=== PATIENT | female | born 1970 | race Caucasian/White ===

== ENCOUNTER → 2017-01-20 | Outpatient (CLI) | payer OTHER ==
[2015-05-30 21:30] VITALS: BP 122/59
[~2017-01-20] MED LIST: ASEN10TA9 SL; CHRO1TAB3 PO; DICL25CA PO; ESTR0.5T PO; FENT1PAT15 TD; GABA-587 PO; LEVO25TA2 PO; LEVO75TA PO; MELO7.5T5 PO; MONT10TA9 PO; OXYC-250 PO; PROG100C7 PO; TOPI25TA32 PO; VENL75CA PO; ZIPR40CA2 PO
--- NOTE | 2017-01-24 12:17 | RESP ---
DATE OF SERVICE: 01/20/2017 ATTENDING PHYSICIAN: Dr. Percy Soto. The patient underwent full pulmonary function testing dated 01/20/2017. FEV1 to FVC ratio was 81%. FEV1 was 75% of predicted at 2.20 liters. FVC was 74% of predicted at 2.71 liters. Total lung capacity was not performed. Vital capacity was decreased at 74% of predicted. Diffusion capacity was preserved. IMPRESSION: Spirometry indicative of restrictive lung disease. Vital capacity was 74% of predicted at 2.70 liters. Total lung capacity was not obtained. HARRIS HAMILTON MD DR: RYAN/anna JOB#: [id number] / [id number] LEYDI Marie MD
== END | disposition home or self-care (01) ==
LOC: PF 11:02
PROVIDERS: ATTEND Internal Medicine Pulmonary Disease
DX: R06.02 Shortness of breath (principal)
CPT/HCPCS: 94060; 94729

== ENCOUNTER 2019-04-18 21:38 | Emergency (ER) | payer MEDICARE, OTHER ==
[~2019-04-18] VITALS: Ht 165.1 cm; Wt 136.1 kg
[~2019-04-18 21:38] MED LIST changes: -GABA-587 PO; +GABA-689 PO; -LEVO25TA2 PO; +LEVO25TA55 PO; +MONT10TA49 PO; -MONT10TA9 PO; -OXYC-250 PO; +OXYC1TAB22 PO; +PROG100C15 PO; -PROG100C7 PO; -TOPI25TA32 PO; +TOPI25TA52 PO
[2019-04-18 21:50] VITALS: BP 151/73
[2019-04-18] MEDS ORDERED: ORPH100T PO (22:03)
[2019-04-18] MEDS ORDERED: GABA-585 PO (22:03)
--- NOTE | 2019-04-18 22:03 | PHYS DOC ---
Past Medical History Past Medical History: Anxiety, Depression Additional Past Medical Histor: CHRONIC LOWER BACK PAIN (BIBI WEEMS APRN) Past Surgical History: Cholecystectomy, Oophorectomy, Tonsillectomy Additional Past Surgical Histo: UTERINE ABLASTION, RIGHT CARPAL TUNNEL (BIBI WEEMS APRN) Alcohol Use: None Drug Use: None (BIBI WEEMS APRN) Adult General Chief Complaint Chief Complaint: LOWER BACK PAIN OR INJURY HPI HPI Patient is a 48 year old female who presents with mom history of bulging disc, sciatica, nerve pain states today the pain is worse and she is having a 10 out of 10 pain in the back of the left leg from the lower back that shoots down to the back of the left leg. Patient rates pain a 10 out of 10 and states is sharp and shooting. Patient states that she is currently being seen by pain clinic for multiple doctors and they have talked about steroid injections to her back. Patient states she doubled up on her oxycodone stay at 1999. Patient states she wants to be admitted and wants IV Dilaudid is only thing that can help her pain. Patient is unable to take any NSAIDs or steroid due to gastric bypass. Patient is tearful. (BIBI WEEMS PE MANAGER) Review of Systems Review of Systems Constitutional: Denies fever or chills [] Eyes: Denies change in visual acuity, redness, or eye pain [] HENT: Denies nasal congestion or sore throat [] Respiratory: Denies cough or shortness of breath [] Cardiovascular: No additional information not addressed in HPI [] GI: Denies abdominal pain, nausea, vomiting, bloody stools or diarrhea [] : Denies dysuria or hematuria [] Musculoskeletal: back pain that radiates down back of left leg. Denies joint pain [] Integument: Denies rash or skin lesions [] Neurologic: Denies headache, focal weakness or sensory changes [] Endocrine: Denies polyuria or polydipsia [] All other systems were reviewed and found to be within normal limits, except as documented in this note. (BIBI WEEMS APRN) Current Medications Current Medications Current Medications Medications (Trade) Dose Ordered Sig/Grace Start Time Stop Time Status Last Admin Dose Admin Morphine Sulfate (Morphine Sulfate) 2 mg 1X ONCE 7/4/19 22:30 04/18/19 22:31 DC 04/18/19 22:13 2 MG Orphenadrine Citrate (Norflex) 60 mg 1X ONCE 04/18/19 22:30 04/18/19 22:31 DC 04/18/19 22:13 60 MG (VIKTORIA RASMUSSEN MD) Allergies Allergies Allergies Coded Allergies Type Severity Reaction Last Updated Verified Sulfa (Sulfonamide Antibiotics) Allergy Intermediate rash 03/12/15 Yes (VIKTORIA RASMUSSEN MD) Physical Exam Physical Exam Constitutional: Well developed, well nourished, no acute distress, non-toxic appearance. [] HENT: Normocephalic, atraumatic, bilateral external ears normal, oropharynx moist, no oral exudates, nose normal. [] Eyes: PERRLA, EOMI, conjunctiva normal, no discharge. [] Neck: Normal range of motion, no tenderness, supple, no stridor. [] Cardiovascular:Heart rate regular rhythm, no murmur [] Lungs & Thorax: Bilateral breath sounds clear to auscultation [] Abdomen: Bowel sounds normal, soft, no tenderness, no masses, no pulsatile masses. [] Skin: Warm, dry, no erythema, no rash. [] Back: Lumbar spine tenderness, no CVA tenderness. [] Extremities: No tenderness, no cyanosis, no clubbing, ROM intact, no edema. [] Neurologic: Alert and oriented X 3, normal motor function, normal sensory function, no focal deficits noted. [] Psychologic: Affect normal, judgement normal, mood normal. [] (BIBI WEEMS APRN) Current Patient Data Vital Signs Vital Signs Date Time Temp Pulse Resp B/P (MAP) Pulse Ox O2 Delivery O2 Flow Rate FiO2 04/18/19 22:13 24 97 Room Air 04/18/19 21:50 98.5 65 151/73 (99) 98.5 (VIKTORIA RASMUSSEN MD) EKG EKG [] (BIBI WEEMS APRN) Radiology/Procedures Radiology/Procedures [] (BIBI WEEMS APRN) Course & Med Decision Making Course & Med Decision Making Patient is a 48 year old female who presents with mom history of bulging disc, sciatica, nerve pain states today the pain is worse and she is having a 10 out of 10 pain in the back of the left leg from the lower back that shoots down to the back of the left leg. Patient rates pain a 10 out of 10 and states is sharp and shooting. Patient states that she is currently being seen by pain clinic for multiple doctors and they have talked about steroid injections to her back. Patient states she doubled up on her oxycodone stay at 2000. Patient states she wants to be admitted and wants IV Dilaudid is only thing that can help her pain. Patient is unable to take any NSAIDs or steroid due to gastric bypass. Patient is tearful. Patient unable to ambulate due to pain and is wheeled into the ED. There is no swelling or deformity or redness seen to the affected leg. There is tenderness when palpated to the lower back. Pedal pulses present. Patient is told that she is not going to receive IV Dilaudid is not meet admission status. Patient is also told that we do not do steroid injection procedures in the ED. I have offered the patient IM pain medication and muscle relaxer. Patient states morphine does not do anything needed is gabapentin. Patient is extremely upset and yelling at staff due to not getting IV pain medication and not being admitted to the hospital. I have consulted with Dr Rasmussen on this patient. Patient is given a IM shot of morphine and orphenadrine. I have sent her home with a prescription for gabapentin and orphenadrine. Patient to continue taking her oxycodone and other pain medications that her pain clinic currently has her on as prescribed. Patient needs to call them as soon as possible to for follow-up. Patient's states they've been to multiple clinics and hospitals. Patient states she is going back to [facility] after leaving this hospital. (IBBI WEEMS APRN) Course & Med Decision Making Staff Physician Addendum: I was working in the ER during the course of this patient's visit. I was available for consultation as needed, but I was not directly involved in the care of this patient. (VIKTORIA RASMUSSEN MD) Dragon Disclaimer Dragon Disclaimer This electronic medical record was generated, in whole or in part, using a voice recognition dictation system. (BIBI WEEMS APRN) Departure Departure Impression: Primary Impression: Nerve pain Disposition: 01 HOME, SELF-CARE Condition: STABLE Referrals: NICKI GONZALEZ (PCP) Patient Instructions: Back Pain, Adult, Sciatica Additional Instructions: Follow up with doctor as soon as possible. Take medication as prescribed. Scripts Orphenadrine Citrate (ORPHENADRINE CITRATE) 100 Mg Tablet.er 1 TAB PO BID, #20 TAB 1 Refill Prov: BIBI WEEMS APRN 04/18/19 Gabapentin (GABAPENTIN ) 100 Mg Capsule 100 MG PO TID for NEUROGENIC PAIN, #20 CAP Prov: BIBI WEEMS APRN 04/18/19 BIBI WEEMS APRN Apr 18, 2019 22:03 VIKTORIA RASMUSSEN MD Apr 21, 2019 19:44
[2019-04-18] MEDS ORDERED: ORPHENADRINE CITRATE 60 MG/2 ML VIAL. IM ONE (22:30)
[2019-04-18] MEDS ORDERED: MORPHINE SULFATE 4 MG/ML VIAL. IM ONE (22:30)
[2019-04-18] MEDS ORDERED: MORPHINE SULFATE 2 MG/ML VIAL. IM ONE (22:30)
== END 2019-04-18 22:28 | disposition home or self-care (01) ==
LOC: ER 21:38
DX: M54.42 Lumbago with sciatica, left side (principal); F41.9 Anxiety disorder, unspecified; F32.9 Major depressive disorder, single episode, unspecified; G89.29 Other chronic pain; Z90.49 Acquired absence of other specified parts of digestive tract; Z90.89 Acquired absence of other organs; Z88.2 Allergy status to sulfonamides
CPT/HCPCS: 96372; 99284; J2270; J2360

== ENCOUNTER 2021-07-27 00:34 | Emergency (ER) | payer MEDICARE, MEDICAID ==
[~2021-07-27] VITALS: Ht 157.5 cm; Wt 113.0 kg
[~2021-07-27 00:34] MED LIST changes: +GABA-585 PO; -LEVO75TA PO; +LEVO75TA90 PO; +ORPH100T PO
[2021-07-27] MEDS ORDERED: KETOROLAC 15 MG/ML VIAL. IVP ONE (01:30)
[2021-07-27] MEDS ORDERED: HYDROmorphone 2 MG/ML VIAL IVP ONE ×3 (02:00→06:00)
--- NOTE | 2021-07-27 02:14 | ED.ADGEN ---
Past Medical History Past Medical History: Anxiety, Depression Additional Past Medical Histor: CHRONIC LOWER BACK PAIN, CRONIC KNEE PAIN Past Surgical History: Cholecystectomy, Oophorectomy, Tonsillectomy, Other Additional Past Surgical Histo: UTERINE ABLASTION, RIGHT CARPAL TUNNEL, LEFT WRIST, Smoking Status: Never Smoker Alcohol Use: None Drug Use: None General Adult EDM: Chief Complaint: KNEE INJURY HPI: HPI: Patient is a 51 year old female coming in for right lateral knee pain. Patient says she is going to bed and had her leg on the bed and felt a pop after her leg bent in a varus position. Patient to ambulate since and called EMS. States she did not fall but he fell onto her bed. Has a history of a prior meniscus repair to that knee. Review of Systems: Review of Systems: All other systems within normal limits except for as noted in the HPI Current Medications: Current Medications Medications (Trade) Dose Ordered Sig/Grace Start Time Stop Time Status Last Admin Dose Admin Hydromorphone HCl (Dilaudid) 1 mg 1X ONCE 07/27/21 02:00 07/27/21 01:55 DC 07/27/21 01:43 1 MG Ketamine HCl (Ketamine) 10 mg 1X ONCE 07/27/21 02:30 07/27/21 02:31 DC 07/27/21 02:29 10 MG Ketamine HCl 10 mg/Sodium Chloride 50.2 ml @ 50 mls/hr 1X ONCE 07/27/21 03:00 07/27/21 04:00 Cancel Ketorolac Tromethamine (Toradol 15mg Vial) 15 mg 1X ONCE 07/27/21 01:30 07/27/21 01:31 DC 07/27/21 01:14 15 MG Sodium Chloride 250 ml @ 250 mls/hr 1X ONCE 07/27/21 02:30 07/27/21 03:29 Allergies: Allergies: Allergies Coded Allergies Type Severity Reaction Last Updated Verified Sulfa (Sulfonamide Antibiotics) Allergy Intermediate rash 03/12/15 Yes amoxicillin Allergy Intermediate CONFUSION 07/27/21 Yes benzoic acid Allergy Intermediate CONFUSION 07/27/21 Yes bupropion Allergy Intermediate CONFUSION 07/27/21 Yes clavulanic acid Allergy Intermediate CONFUSION 07/27/21 Yes salicylic acid Allergy Intermediate CONFUSION 07/27/21 Yes Physical Exam: PE: Constitutional: Well developed, well nourished, no acute distress, non-toxic appearance. [] HENT: Normocephalic, atraumatic, bilateral external ears normal, nose normal. [] Eyes: PERRLA, conjunctiva normal, no discharge. [] Neck: No rigidity, supple, no stridor. [] Cardiovascular: Regular rate and rhythm, brisk cap refill [] Lungs & Thorax: Non labored symmetric respirations, no tachypnea or respiratory distress [] Abdomen: Soft, nondistended. Skin: Warm, dry, no erythema, no rash. [] Back: Unremarkable Extremities: No deformities, range of motion grossly intact, no lower extremity edema. Right knee effusion, tenderness over LCL, exam limited by patient's discomfort [] Neurologic: Alert and oriented X 3, no focal deficits noted. [] Psychologic: Affect normal, judgement normal, mood normal. [] Current Patient Data: Vital Signs: Vital Signs Date Time Temp Pulse Resp B/P (MAP) Pulse Ox O2 Delivery O2 Flow Rate FiO2 07/27/21 01:43 20 100 07/27/21 00:50 99.4 82 158/82 (107) Room Air 99.4 EKG: EKG: [] Heart Score: C/O Chest Pain: No Risk Factors: Risk Factors: DM, Current or recent (<one month) smoker, HTN, HLP, family history of CAD, obesity. Risk Scores: Score 0 - 3: 2.5% MACE over next 6 weeks - Discharge Home Score 4 - 6: 20.3% MACE over next 6 weeks - Admit for Clinical Observation Score 7 - 10: 72.7% MACE over next 6 weeks - Early Invasive Strategies Radiology/Procedures: Radiology/Procedures: [facility] [address] [place], [place] [id number] IMAGING REPORT Signed PATIENT: HARINDER ACCOUNT: [id number] : 1970 LOCATION: ER AGE: 51 SEX: F EXAM STATUS: REG ER ORD. PHYSICIAN: DEE LÁVAREZ MD REASON: pain, swelling, HX OF MENESCUS INJURY& SURGERY 2006, TWISTED GETTING IN BED PROCEDURE: KNEE RIGHT 3V XR KNEE 3 VIEWS_RT History: Reason: pain, swelling, HX OF MENESCUS INJURY SURGERY 2006, TWISTED GETTING IN BED / Spl. Instructions: / History: Technique: 3 views right knee Comparison: None. Findings: Advanced tricompartment knee degenerative changes most prominent within the medial and patellofemoral compartments. No significant knee joint effusion. No dislocation. No acute fracture. Impression: 1. No acute osseous abnormality. 2. Advanced right knee DJD. Electronically signed by: Miguel Reilly DO (07/27/2021 2:30 AM) [facility] DICTATED and SIGNED BY: MIGUEL REILLY DO DATE: 07/27/21 [id number] 0 [] Impression: Knee immobilizer placed on right leg for stability. Patient stated when she was seen at for injury day given her 10 mg of ketamine over 30 minutes mixed with NS. She said that worked for her pain. She is a chronic pain patient and is very opioid tolerant. Given in the emergency department and patient's pain improved Course & Med Decision Making: Course & Med Decision Making Pertinent Labs and Imaging studies reviewed. (See chart for details) [] Dragon Disclaimer: Dragon Disclaimer: This electronic medical record was generated, in whole or in part, using a voice recognition dictation system. Departure Departure Impression: Primary Impression: Acute injury of right knee cartilage Disposition: HOME / SELF CARE / HOMELESS Condition: STABLE Referrals: NICKI GONZALEZ (PCP) Patient Instructions: RICE - Routine Care for Injuries Additional Instructions: Follow-up with orthopedic surgeon, Dr. Chance Alva, DO: [address] [place] [address] DEE ÁLVAREZ MD Jul 27, 2021 02:14
[2021-07-27] MEDS ORDERED: IV NORMAL SALINE 500ML BAG 250 ML IV ONE (02:30)
[2021-07-27] MEDS ORDERED: KETAMINE HCL 500 MG/10 ML VIAL. IV ONE (02:30)
[2021-07-27] MEDS ORDERED: KETAMINE HCL IN NACL, ISO-OSM 50 MG/5 ML SYRINGE IV ONE (02:30)
--- NOTE | 2021-07-27 02:32 | RAD ---
XR KNEE 3 VIEWS_RT History: Reason: pain, swelling, HX OF MENESCUS INJURY SURGERY 2006, TWISTED GETTING IN BED / Spl. I nstructions: / History: Technique: 3 views right knee Comparison: None. Findings: Advanced tricompartment knee degenerative changes most prominent within the medial and patellofemoral compartments. No significant knee joint effusion. No dislocation. No acute fracture. Impression: 1. No acute osseous abnormality. 2. Advanced right knee DJD. Electronically signed by: Miguel Reilly DO (07/27/2021 2:30 AM) [facility]
[2021-07-27] MEDS ORDERED: NORMAL SALINE IV ONE (03:00)
[2021-07-27] MEDS ORDERED: KETAMINE HCL IV ONE (03:00)
[2021-07-27 05:00] VITALS: BP 177/6
== END 2021-07-27 05:07 | disposition home or self-care (01) ==
LOC: ER 00:34
DX: S89.91XA Unspecified injury of right lower leg, initial encounter (principal); G89.29 Other chronic pain; Z90.49 Acquired absence of other specified parts of digestive tract; Z90.722 Acquired absence of ovaries, bilateral; Z88.1 Allergy status to other antibiotic agents; Z88.2 Allergy status to sulfonamides; Z88.8 Allergy status to other drugs, medicaments and biological substances; W06.XXXA Fall from bed, initial encounter; Y93.89 Activity, other specified; Y92.89 Other specified places as the place of occurrence of the external cause; Y99.8 Other external cause status
CPT/HCPCS: 29505; 73562; 96374; 96375; 96376; 99285; J1170; J1885